=== PATIENT | female | born 1955 | race African-American/Black ===

== ENCOUNTER → 2016-07-09 | Outpatient (CLI) | payer MEDICAID | LOC: WI 15:03 | PROVIDERS: ATTEND Nurse Practitioner Primary Care | DX: Z12.31 Encounter for screening mammogram for malignant neoplasm of breast (principal) | CPT/HCPCS: 77067; G0202 ==

== ENCOUNTER → 2017-04-16 | Outpatient (CLI) | payer MEDICAID ==
[2017-04-16 11:41] LABS: HEMATOCRIT 45.5 % (36.0-47.0); HEMOGLOBIN 15.6 g/dL (12.0-15.5); MEAN CORPUSCULAR HEMOGLOBIN 29.8 pg (27.0-33.4); MEAN CORPUSCULAR HGB CONC 34.2 g/dL (32.0-36.0); MEAN CORPUSCULAR VOLUME 87 fl (80-97); PLATELET COUNT 304 10^3/uL (150-450); RED BLOOD COUNT 5.22 10^6/uL (3.72-5.28); WHITE BLOOD COUNT 11.4 10^3/uL (4.0-10.5)
[2017-04-16 12:15] LABS: ALANINE AMINOTRANSFERASE 30 U/L (9-52); ALBUMIN 4.4 g/dL (3.5-5.0); ALKALINE PHOSPHATASE 121 U/L (38-126); ANION GAP 12 (5-19); ASPARTATE AMINO TRANSFERASE 22 U/L (14-36); BILIRUBIN,DIRECT 0.3 mg/dL (0.0-0.4); BILIRUBIN,TOTAL 0.3 mg/dL (0.2-1.3); BLOOD UREA NITROGEN 12 mg/dL (7-20); CALCIUM 10.3 mg/dL (8.4-10.2); CARBON DIOXIDE 27 mmol/L (22-30); CHLORIDE 104 mmol/L (98-107); CREATINE KINASE 61 U/L (30-135); GLUCOSE 93 mg/dL (75-110); POTASSIUM 4.6 mmol/L (3.6-5.0); SODIUM 142.8 mmol/L (137-145); TOTAL PROTEIN 7.6 g/dL (6.3-8.2)
--- NOTE | 2017-04-16 14:03 | RADIOLOGY REPORT (SQ) ---
EXAM DESCRIPTION: CHEST PA/LATERAL COMPLETED DATE/TIME: 04/16/2017 11:45 am REASON FOR STUDY: CHEST PAIN COMPARISON: 10/07/2014 EXAM PARAMETERS: NUMBER OF VIEWS: two views TECHNIQUE: Digital Frontal and Lateral radiographic views of the chest acquired. RADIATION DOSE: NA LIMITATIONS: none FINDINGS: LUNGS AND PLEURA: No opacities, masses or pneumothorax. No pleural effusion. MEDIASTINUM AND HILAR STRUCTURES: No masses or contour abnormalities. HEART AND VASCULAR STRUCTURES: Heart normal size. No evidence for failure. BONES: No acute findings. HARDWARE: None in the chest. OTHER: No other significant finding. IMPRESSION: NO SIGNIFICANT RADIOGRAPHIC FINDING IN THE CHEST. TECHNICAL DOCUMENTATION: JOB ID: [id number] [employer]- All Rights Reserved
== END ==
LOC: OD 11:02
PROVIDERS: ATTEND Obstetrics & Gynecology
DX: R07.9 Chest pain, unspecified (principal); E78.5 Hyperlipidemia, unspecified
CPT/HCPCS: 36415; 71046; 80053; 82550; 84484; 85027; 85379

== ENCOUNTER 2017-06-04 21:40 | Observation (INO) | payer MEDICAID ==
[2017-06-04 21:56] LABS: ABSOLUTE BASOPHILS # (AUTO) 0.1 10^3/uL (0.0-0.2); ABSOLUTE EOSINOPHILS # (AUTO) 0.1 10^3/uL (0.0-0.6); ABSOLUTE MONOCYTES (AUTO) 0.8 10^3/uL (0.1-1.4); ABSOLUTE NEUT (AUTO) 8.1 10^3/uL (1.7-8.2); BASOPHILS % (AUTO) 0.6 % (0-2); EOSINOPHILS % (AUTO) 0.7 % (0-6); HEMATOCRIT 46.6 % (36.0-47.0); HEMOGLOBIN 16.1 g/dL (12.0-15.5); LYMPHOCYTES % (AUTO) 39.8 % (13-45); MEAN CORPUSCULAR HEMOGLOBIN 29.9 pg (27.0-33.4); MEAN CORPUSCULAR HGB CONC 34.6 g/dL (32.0-36.0); MEAN CORPUSCULAR VOLUME 87 fl (80-97); MONOCYTES % (AUTO) 5.3 % (3-13); PLATELET COUNT 320 10^3/uL (150-450); RED BLOOD COUNT 5.39 10^6/uL (3.72-5.28); SEGMENTED NEUTROPHILS % (AUTO) 53.6 % (42-78); TOTAL CELLS COUNTED % (AUTO) 100 %
[2017-06-04 22:08] LABS: ALANINE AMINOTRANSFERASE 39 U/L (9-52); ALBUMIN 4.8 g/dL (3.5-5.0); ALKALINE PHOSPHATASE 135 U/L (38-126); ANION GAP 11 (5-19); ASPARTATE AMINO TRANSFERASE 29 U/L (14-36); BILIRUBIN,DIRECT 0.1 mg/dL (0.0-0.4); BILIRUBIN,TOTAL 0.2 mg/dL (0.2-1.3); BLOOD UREA NITROGEN 11 mg/dL (7-20); CALCIUM 10.4 mg/dL (8.4-10.2); CARBON DIOXIDE 28 mmol/L (22-30); CHLORIDE 102 mmol/L (98-107); CREATINE KINASE 77 U/L (30-135); GLUCOSE 83 mg/dL (75-110); POTASSIUM 4.2 mmol/L (3.6-5.0); SODIUM 141.2 mmol/L (137-145); TOTAL PROTEIN 7.6 g/dL (6.3-8.2)
[2017-06-04 22:20] LABS: CREATINE KINASE MB 0.47 ng/mL (<4.55); TROPONIN I < 0.012 ng/mL
--- NOTE | 2017-06-04 23:00 | ER Document Report ---
ED General - General Chief Complaint: Chest Pain Stated Complaint: CHEST PAIN Time Seen by Provider: 06/04/17 22:56 Notes: Patient is a 61-year-old female presents with complaint of chest pain. She says it is a heaviness in her chest that has been ongoing at this afternoon. She says she has had some heaviness in her chest off and on for over a year but the last couple weeks has become much more frequent and today became constant and a associated sharp pain with it as well. Some nausea. No difficulty breathing. No abdominal pain. No fevers. She did have a stress test just over 5 years ago. She says she had a heart attack in 2007. She was told was a mild heart attack. She never had a heart cath and no history of stenting. No leg pain or leg swelling. No other complaints at this time. TRAVEL OUTSIDE OF THE [place] IN LAST 30 DAYS: No - Related Data Allergies/Adverse Reactions: erythromycin base [Erythromycin Base] Allergy (Verified 06/04/17 23:46) Past Medical History - Social History Smoking Status: Current Every Day Smoker Chew tobacco use (# tins/day): No Frequency of alcohol use: None Drug Abuse: None Family History: Reviewed & Not Pertinent Patient has suicidal ideation: No Patient has homicidal ideation: No - Past Medical History Cardiac Medical History: Reports: Hx Coronary Artery Disease, Hx Heart Attack - 2007 Denies: Hx Hypertension Pulmonary Medical History: Denies: Hx Asthma, Hx Bronchitis, Hx COPD, Hx Pneumonia Neurological Medical History: Denies: Hx Cerebrovascular Accident, Hx Seizures Renal/ Medical History: Denies: Hx Peritoneal Dialysis Musculoskeltal Medical History: Reports Hx Arthritis - osteo in neck Psychiatric Medical History: Reports: Hx Anxiety, Hx Depression - anxiety Past Surgical History: Reports: Hx Appendectomy, Hx Section, Hx Cholecystectomy. Denies: Hx Hysterectomy - Immunizations Hx Diphtheria, Pertussis, Tetanus Vaccination: Yes Review of Systems - Review of Systems Notes: My Normal Review Basic REVIEW OF SYSTEMS: CONSTITUTIONAL : Denies fever, chills, or sweats. Denies recent illness. EENT: Denies eye, ear, throat, or mouth pain or symptoms. Denies nasal or sinus congestion. CARDIOVASCULAR: Chest pain RESPIRATORY: Denies cough, cold, or chest congestion. Denies shortness of breath, difficulty breathing, or wheezing. GASTROINTESTINAL: Denies abdominal pain. Nausea MUSCULOSKELETAL: Denies neck or back pain or joint pain or swelling. SKIN: Denies rash or skin lesions. NEUROLOGICAL: Denies altered mental status or loss of consciousness. Denies headache. Denies weakness or paralysis or loss of use of either side. Denies problems with gait or speech. Denies sensory or motor loss. ALL OTHER SYSTEMS REVIEWED AND NEGATIVE. Physical Exam - Vital signs Vitals: Temp Pulse Resp BP Pulse Ox 98.4 F 86 20 115/67 96 06/04/17 21:55 06/04/17 21:55 06/04/17 21:55 06/04/17 21:55 06/04/17 21:55 - Notes Notes: General Appearance: Well nourished, alert, cooperative, no acute distress, no obvious discomfort. Vitals: reviewed, See vital signs table. Head: no swelling or tenderness to the head Eyes: PERRL, EOMI, Conjuctiva clear Mouth: No decreasd moisture Lungs: No wheezing, No rales, No rhonci, No accessory muscle use, good air exchange bilaterally. Heart: Normal rate, Regular rythm, No murmur, no rub Abdomen: Normal BS, soft, No rigidity, No abdominal tenderness, No guarding, no rebound, no abdominal masses, no organomegaly Extremities: strength 5/5 in all extremities, good pulses in all extremities, no swelling or tenderness in the extremities, no edema. Skin: warm, dry, appropriate color, no rash Neuro: speech clear, oriented x 3, normal affect, responds appropriately to questions. Course - Re-evaluation Re-evalutation: 06/04/17 23:59 Patient's story is concerning for coronary disease and that is a heaviness and pressure over her chest. She otherwise looks comfortable. She is in no distress at this time. Her initial troponin and EKG are negative. She does have risk factors in that she is 61 years old, family history, possible history of previous NC, and also she is a smoker. I did speak with Dr. Combs who agrees to evaluate the patient for potential admission. Dictation of this chart was performed using voice recognition software; therefore, there may be some unintended grammatical errors. - Vital Signs Vital signs: Temp Pulse Resp BP Pulse Ox 98.4 F 86 14 135/73 H 95 06/04/17 21:55 06/04/17 21:55 06/04/17 23:03 06/04/17 23:03 06/04/17 23:03 - Laboratory Result Diagrams: 06/04/17 21:25 06/04/17 21:25 Laboratory results interpreted by me: 06/04/17 06/04/17 21:25 21:25 WBC 15.0 H RBC 5.39 H Hgb 16.1 H Absolute Lymphocytes 6.0 H Calcium 10.4 H Alkaline Phosphatase 135 H - EKG Interpretation by Me Additional EKG results interpreted by me: 06/04/17 22:59 EKG is reviewed and interpreted by me. EKG shows sinus rhythm with rate of [address] segment elevation or depression. No ischemic T-wave inversions. RI interval, QRS duration, QTc intervals are within normal range. Old EKG for comparison is from October 07, 2014. Discharge - Discharge Clinical Impression: Chest pain Qualifiers: Chest pain type: unspecified Qualified Code(s): R07.9 - Chest pain, unspecified Condition: Stable Disposition: ADMITTED OBSERVATION Admitting Provider: Hospitalist Unit Admitted: Telemetry Referrals: JANELLE HARPER MD [Primary Care Provider] - Follow up as needed
[2017-06-04] MEDS ORDERED: NITROGLYCERIN 2% OINTMENT 1 GM PACKET TP ONE (23:10)
[2017-06-04] MEDS ORDERED: ASPIRIN 325 MG TABLET PO ONE (23:10)
--- NOTE | 2017-06-05 00:08 | RADIOLOGY REPORT (SQ) ---
EXAM DESCRIPTION: CHEST SINGLE VIEW CLINICAL HISTORY: 61 years Female, chest pain COMPARISON: 04/16/17 NUMBER OF VIEWS/TECHNIQUE: 1/AP LIMITATIONS: None. FINDINGS: Normal lung volume, clear parenchyma, prominent interstitium normal cardiac silhouette, and intact bony thorax. Stable. IMPRESSION: No acute cardiopulmonary findings.
[2017-06-05] MEDS ORDERED: DIAZEPAM 5 MG TABLET PO PRN (01:10)
[2017-06-05] MEDS ORDERED: DEXTROSE 50%-WATER 25 GM/50 ML DISP.SYRIN IV PRN ×2 (01:10)
[2017-06-05] MEDS ORDERED: NITROGLYCERIN 0.4 MG/TAB 25 TAB/BOTTLE SL PRN ×2 (01:10→08:44)
[2017-06-05] MEDS ORDERED: DEXTROSE 40% GEL 15 GM TUBE PO PRN ×2 (01:10)
[2017-06-05] MEDS ORDERED: GLUCAGON,HUMAN RECOMB 1 MG INJ SUBCUT PRN (01:10)
[2017-06-05] MEDS ORDERED: HYDRALAZINE HCL INJ/PF 20 MG/1 ML SDV IV PRN (01:13)
[2017-06-05 04:57] LABS: CHOLESTEROL 228.88 mg/dL (0-200); CREATINE KINASE 60 U/L (30-135); TRIGLYCERIDES 243 mg/dL (<150)
[2017-06-05] MEDS ORDERED: TRAZODONE HCL 50 MG TABLET PO PRN (05:02)
[2017-06-05 05:08] LABS: DIRECT LDL 162 mg/dL (<100)
[2017-06-05 05:09] LABS: CREATINE KINASE MB 0.43 ng/mL (<4.55)
--- NOTE | 2017-06-05 05:10 | PDOC H&P ---
History of Present Illness Admission Date/PCP: 06/05/17 00:03 JANELLE HARPER MD Patient complains of: Left-sided chest pain, palpitations and shortness of breath. History of Present Illness: TOBY ZUNIGA is a 61 year old female with a past medical history of severe anxiety and depression and GERD. Patient presents with 24 hours of left-sided chest pain which radiates to the neck associated with palpitations, shortness of breath and nausea without vomiting. She describes the pain as intermittently dull and sharp 3-4 out of 5 intensity, waxing and waning and occurring at rest. She is unable to identify alleviating or exacerbating factors. She has had many different components of chest pain in the past some associated with panic attacks. She does admit her anxiety is poorly controlled with her last panic attack only 1 week ago. She admits to tobacco dependence and excessive caffeine, denies recent change in medications and otherwise complains of poor sleep. Past Medical History Cardiac Medical History: Denies: Hypertension Pulmonary Medical History: Denies: Asthma, Bronchitis, Chronic Obstructive Pulmonary Disease (COPD), Pneumonia Neurological Medical History: Denies: Seizures Musculoskeltal Medical History: Reports: Arthritis - osteo in neck Psychiatric Medical History: Reports: Depression Hematology: Reports: Anemia Past Surgical History Past Surgical History: Reports: Appendectomy, Section, Cholecystectomy Denies: Hysterectomy Social History Information Source: Patient Smoking Status: Smoker,Current Status Unk Cigarettes Packs Per Day: 1 Frequency of Alcohol Use: Rare Hx Recreational Drug Use: No Drugs: None Hx Prescription Drug Abuse: No - Advance Directive Resuscitation Status: Full Code Family History Family History: Hypertension, Other - Alcoholism.. denies: CAD Parental Family History Reviewed: Yes Children Family History Reviewed: Yes Sibling(s) Family History Reviewed.: Yes Medication/Allergy Home Medications: Calcium/Phos/Genist/D3/Zn/K [Fosteum Plus Capsule] 1 each PO DAILY 02/12/14 Diazepam [Valium 5 mg Tablet] 5 mg PO PRN PRN 02/12/14 Paroxetine HCl [Paxil] 30 mg PO DAILY 02/12/14 Atorvastatin Calcium [Lipitor 20 mg Tablet] 20 mg PO QHS 02/13/14 Acetaminophen with Codeine [Tylenol with Codeine #3 Tablet] 1 tab PO BID #14 tab 10/08/14 Albuterol Sulfate [Albuterol Sulfate Hfa] 1 - 2 puff IH Q4 PRN #1 hfa.aer.ad 09/17 Methylprednisolone [Medrol Dosepack (4 mg/Tab) 21 Tab/Dosepak] 4 mg PO ASDIR PRN #21 tab.ds.pk 10/08/14 Allergies/Adverse Reactions: erythromycin base [Erythromycin Base] Allergy (Verified 06/04/17 23:46) Review of Systems Constitutional: PRESENT: as per HPI, fatigue, headache(s). ABSENT: fever(s), weakness Eyes: ABSENT: visual disturbances Ears: ABSENT: hearing changes Cardiovascular: PRESENT: as per HPI, chest pain. ABSENT: dyspnea on exertion, edema, orthropnea, palpitations Respiratory: ABSENT: cough, hemoptysis Gastrointestinal: ABSENT: abdominal pain, constipation, diarrhea, hematemesis, hematochezia, nausea, vomiting Genitourinary: ABSENT: dysuria, hematuria Musculoskeletal: PRESENT: back pain, other - Reproducible left shoulder pain. ABSENT: joint swelling Integumentary: ABSENT: rash, wounds Neurological: ABSENT: abnormal gait, abnormal speech, confusion, dizziness, focal weakness, syncope Psychiatric: PRESENT: anxiety, depression. ABSENT: homidical ideation, suicidal ideation Endocrine: ABSENT: cold intolerance, heat intolerance, polydipsia, polyuria Hematologic/Lymphatic: ABSENT: easy bleeding, easy bruising Physical Exam Vital Signs: Temp Pulse Resp BP Pulse Ox 98.1 F 85 16 140/75 H 96 06/05/17 03:34 06/05/17 03:34 06/05/17 03:34 06/05/17 03:34 06/05/17 03:34 Intake & Output 06/03/17 06/04/17 06/05/17 11:59 11:59 11:59 Weight 67.6 kg General appearance: PRESENT: cooperative, mild distress. ABSENT: disheveled, hard of hearing Head exam: PRESENT: atraumatic, normocephalic Eye exam: PRESENT: conjunctiva pink, EOMI, PERRLA. ABSENT: scleral icterus Ear exam: PRESENT: normal external ear exam Mouth exam: PRESENT: moist, tongue midline Neck exam: ABSENT: carotid bruit, JVD, lymphadenopathy, thyromegaly Respiratory exam: PRESENT: clear to auscultation bianca. ABSENT: rales, rhonchi, wheezes Cardiovascular exam: PRESENT: RRR. ABSENT: diastolic murmur, rubs, systolic murmur Pulses: PRESENT: normal dorsalis pedis pul Vascular exam: PRESENT: normal capillary refill GI/Abdominal exam: PRESENT: normal bowel sounds, soft. ABSENT: distended, guarding, mass, organolmegaly, rebound, tenderness Rectal exam: PRESENT: deferred Extremities exam: PRESENT: full ROM. ABSENT: calf tenderness, clubbing, pedal edema Musculoskeletal exam: PRESENT: ambulatory, deformity, dislocation, full ROM, tenderness - Spasm of the posterior neck musculature. No guarding. Full range of motion Neurological exam: PRESENT: alert, awake, oriented to person, oriented to place , oriented to time, oriented to situation, CN II-XII grossly intact. ABSENT: motor sensory deficit Psychiatric exam: PRESENT: anxious, depressed Skin exam: PRESENT: dry, intact, warm. ABSENT: cyanosis, rash Results Impressions: Chest X-Ray 06/04/17 21:45 IMPRESSION: No acute cardiopulmonary findings. Assessment & Plan - Diagnosis (1) Atypical chest pain Is this a current diagnosis for this admission?: Yes Plan: Atypical chest pain though the patient's pain is atypical there are multiple risk factors for coronary artery disease and subsequently will observe and evaluation of acute coronary syndrome versus coronary artery disease with anginal equivalents. Cardiac monitoring blood pressure Q6 hours ,TSH, lipid profile, serial cardiac enzymes and cardiac stress test (2) Tobacco abuse Is this a current diagnosis for this admission?: Yes Plan: Tobacco Dependence patient received tobacco cessation counseling and offered nicotine replacement options (3) Anxiety Is this a current diagnosis for this admission?: Yes Plan: Reassurance, home regiment, trazodone as needed follow-up outpatient mental health. - Time Time Spent: 30 to 50 Minutes
[2017-06-05 05:17] LABS: TROPONIN I < 0.012 ng/mL; VLDL CHOLESTEROL 48.6 mg/dL (10-31)
[2017-06-05] MEDS: HEPARIN SOD (PORCINE) 5,000 UNIT/ML 1 ML SYRINGE SUBCUT SCH ×3 (05:44→21:21)
--- NOTE | 2017-06-05 08:45 | EKG REPORT ---
SEVERITY:- NORMAL ECG - SINUS RHYTHM : Confirmed by: Ray Ruiz MD 05-Jun-2017 08:45:02
[2017-06-05] MEDS: ACETAMINOPHEN WITH CODEINE #3 TABLET PO PRN ×2 (09:03→15:10)
[2017-06-05] MEDS: DOCUSATE SODIUM 100 MG CAPSULE PO SCH ×2 (09:03→17:30)
[2017-06-05 09:20] LABS: ABSOLUTE BASOPHILS # (AUTO) 0.1 10^3/uL (0.0-0.2); ABSOLUTE EOSINOPHILS # (AUTO) 0.2 10^3/uL (0.0-0.6); ABSOLUTE MONOCYTES (AUTO) 0.6 10^3/uL (0.1-1.4); BASOPHILS % (AUTO) 0.9 % (0-2); EOSINOPHILS % (AUTO) 1.8 % (0-6); HEMATOCRIT 43.2 % (36.0-47.0); HEMOGLOBIN 14.7 g/dL (12.0-15.5); LYMPHOCYTES % (AUTO) 35.5 % (13-45); MEAN CORPUSCULAR HEMOGLOBIN 29.5 pg (27.0-33.4); MEAN CORPUSCULAR VOLUME 87 fl (80-97); MONOCYTES % (AUTO) 4.6 % (3-13); PLATELET COUNT 265 10^3/uL (150-450); RED BLOOD COUNT 4.98 10^6/uL (3.72-5.28); RED CELL DISTRIBUTION WIDTH 13.9 % (11.5-14.0); SEGMENTED NEUTROPHILS % (AUTO) 57.2 % (42-78); TOTAL CELLS COUNTED % (AUTO) 100 %
[2017-06-05 09:34] LABS: ANION GAP 9 (5-19); BLOOD UREA NITROGEN 16 mg/dL (7-20); CALCIUM 9.6 mg/dL (8.4-10.2); CARBON DIOXIDE 27 mmol/L (22-30); CHLORIDE 105 mmol/L (98-107); GLUCOSE 96 mg/dL (75-110); POTASSIUM 4.1 mmol/L (3.6-5.0); SODIUM 140.5 mmol/L (137-145)
[2017-06-05 09:46] LABS: CREATINE KINASE MB 0.44 ng/mL (<4.55)
[2017-06-05 09:49] LABS: TROPONIN I < 0.012 ng/mL
[2017-06-05] MEDS ORDERED: AMINOPHYLLINE INJ/PF 250 MG/10 ML SDV IV ONE (11:51)
[2017-06-05] MEDS ORDERED: REGADENOSON INJ 0.4 MG/5 ML DISP.SYRIN IV ONE (11:51)
[2017-06-05 16:46] LABS: CREATINE KINASE MB 0.55 ng/mL (<4.55)
[2017-06-05 16:52] LABS: TROPONIN I < 0.012 ng/mL
[2017-06-05] MEDS ORDERED: PROMETHAZINE HCL 25 MG TABLET PO PRN (17:52)
--- NOTE | 2017-06-05 18:30 | PDOC PROGRESS REPORT ---
Subjective Progress Note for:: 06/05/17 Subjective:: Complaints of nausea. Admitted overnight. Could not do stress test today because at breakfast. No chest pain or palpitations at this time. Reason For Visit: CP,ANXIETY Physical Exam Vital Signs: Temp Pulse Resp BP Pulse Ox 97.8 F 93 20 102/57 L 97 06/05/17 11:58 06/05/17 14:00 06/05/17 11:58 06/05/17 11:58 06/05/17 11:58 Intake & Output 06/04/17 06/05/17 06/06/17 06:59 06:59 06:59 Intake Total 0 118 Balance 0 118 Weight 67.6 kg GEN: NAD, well-developed, well-nourished CV: RRR, NL S1S2 LUNGS: CTA bilaterally ABDOMEN Soft, NT, +BS EXTERMITIES: No e/c/c NEURO: Alert, oriented Results Laboratory Results: 06/05/17 08:41 06/05/17 08:41 06/05/17 06/05/17 06/05/17 03:39 08:41 08:41 WBC 14.0 H RBC 4.98 Hgb 14.7 Hct 43.2 MCV 87 MCH 29.5 MCHC 34.0 RDW 13.9 Plt Count 265 Seg Neutrophils % 57.2 Lymphocytes % 35.5 Monocytes % 4.6 Eosinophils % 1.8 Basophils % 0.9 Absolute Neutrophils 8.0 Absolute Lymphocytes 5.0 H Absolute Monocytes 0.6 Absolute Eosinophils 0.2 Absolute Basophils 0.1 Sodium 140.5 Potassium 4.1 Chloride 105 Carbon Dioxide 27 Anion Gap 9 BUN 16 Creatinine 0.85 Est GFR ( Amer) > 60 Est GFR (Non-Af Amer) > 60 Glucose 96 Calcium 9.6 Triglycerides 243 H Cholesterol 228.88 H LDL Cholesterol Direct 162 H VLDL Cholesterol 48.6 H HDL Cholesterol 41 06/05/17 06/05/17 06/05/17 03:39 03:39 08:41 Creatine Kinase 60 CK-MB (CK-2) 0.43 0.44 Troponin I < 0.012 < 0.012 06/05/17 15:45 Creatine Kinase CK-MB (CK-2) 0.55 Troponin I < 0.012 Impressions: Chest X-Ray 06/04/17 21:45 IMPRESSION: No acute cardiopulmonary findings. Assessment & Plan - Diagnosis (1) Nausea Is this a current diagnosis for this admission?: Yes (2) Atypical chest pain Is this a current diagnosis for this admission?: Yes (3) Tobacco abuse Is this a current diagnosis for this admission?: Yes - Plan Summary Plan Summary: Patient states milligrams tabs. Will treat with Phenergan 25 mg every 6 hours as needed for nausea. N.p.o. after midnight. Stress Cardiolite in a.m. Continue management otherwise.
[2017-06-05] MEDS ORDERED: ATORVASTATIN CALCIUM 80 MG TABLET PO SCH (22:00)
[2017-06-06 04:56] LABS: ABSOLUTE BASOPHILS # (AUTO) 0.1 10^3/uL (0.0-0.2); ABSOLUTE EOSINOPHILS # (AUTO) 0.3 10^3/uL (0.0-0.6); ABSOLUTE MONOCYTES (AUTO) 0.6 10^3/uL (0.1-1.4); ABSOLUTE NEUT (AUTO) 4.7 10^3/uL (1.7-8.2); BASOPHILS % (AUTO) 0.9 % (0-2); EOSINOPHILS % (AUTO) 2.8 % (0-6); HEMATOCRIT 44.6 % (36.0-47.0); HEMOGLOBIN 15.4 g/dL (12.0-15.5); LYMPHOCYTES % (AUTO) 46.7 % (13-45); MEAN CORPUSCULAR HEMOGLOBIN 29.9 pg (27.0-33.4); MEAN CORPUSCULAR HGB CONC 34.5 g/dL (32.0-36.0); MEAN CORPUSCULAR VOLUME 87 fl (80-97); MONOCYTES % (AUTO) 5.9 % (3-13); PLATELET COUNT 269 10^3/uL (150-450); RED BLOOD COUNT 5.15 10^6/uL (3.72-5.28); SEGMENTED NEUTROPHILS % (AUTO) 43.7 % (42-78); TOTAL CELLS COUNTED % (AUTO) 100 %; WHITE BLOOD COUNT 10.7 10^3/uL (4.0-10.5)
[2017-06-06 05:21] LABS: ANION GAP 12 (5-19); BLOOD UREA NITROGEN 13 mg/dL (7-20); CALCIUM 9.7 mg/dL (8.4-10.2); CARBON DIOXIDE 24 mmol/L (22-30); CHLORIDE 107 mmol/L (98-107); CHOLESTEROL 253.77 mg/dL (0-200); CREATINE KINASE 56 U/L (30-135); GLUCOSE 98 mg/dL (75-110); POTASSIUM 4.5 mmol/L (3.6-5.0); SODIUM 142.6 mmol/L (137-145); TRIGLYCERIDES 154 mg/dL (<150)
[2017-06-06] MEDS: HEPARIN SOD (PORCINE) 5,000 UNIT/ML 1 ML SYRINGE SUBCUT SCH ×2 (05:22→15:01)
[2017-06-06 05:31] LABS: DIRECT LDL 184 mg/dL (<100)
[2017-06-06 05:35] LABS: VLDL CHOLESTEROL 30.8 mg/dL (10-31)
--- NOTE | 2017-06-06 11:44 | DRAGON STRESS TEST REPORT ---
INTRAVENOUS LEXISCAN CARDIOLITE STRESS TEST USING SINGLE PHOTON EMMISION COMPUTERIZED TOMOGRAPHIC. DATE OF PROCEDURE: June 06, 2017, INDICATION : Chest pain CARDIAC RISK FACTORS: Hypertension, diabetes, dyslipidemia, tobacco abuse RESTING EKG: Sinus rhythm with minor nonspecific ST-T wave changes STRESS EKG: No significant changes noted with LexiScan bolus REASON FOR TERMINATION: Protocol. PROCEDURE REPORT: Baseline heart rate 76 beats per minute with blood pressure of 129/68. Patient had no significant complaints. Heart rate at 2 minutes post bolus 108 with a blood pressure of 133/73. 3 minutes post bolus heart rate 99 with blood pressure of 126/70. No significant EKG changes were noted. Patient had no significant complaints during the procedure or postprocedure. Patient injected with Aminophyllin 75 mg at 3 minutes or later after Lexiscan bolus. CONCLUSIONS: Normal EKG and hemodynamic response to IV LexiScan. NUCLEAR DATA: At rest the patient was given 10.75 millicuries of technetium 99 sestamibi injected intravenously. As per protocol rest gated SPECT images were obtained. On day of stress test, the patient was given intravenous LexiScan at a dose of 0.4 mg in 5 mL intravenously, followed by flush with normal saline. Subsequently the stress dose of 30.3 millicuries of technetium 99 sestamibi was injected intravenously. As per protocol stress gated images were obtained. NUCLEAR INTERPRETATION: Both raw and processed data were used for interpretation. Visual, qualitative, computer-generated quantitative data was used. There was good myocardial uptake of technetium compound. Motion artifact and soft tissue attenuations were noted. Increased visceral uptake was noted. No definitive areas of transient perfusion defect noted, No definitive areas of fixed perfusion defect or scars noted. EKG gated imaging showed LV EF at 62 %, rest and stress gated EF similar visually. T. I D. ratio was 0.98. Lung heart ratio noted to be within normal limits 0.36. No significant extracardiac and abnormal radiotracer activities were noted. RV free wall uptake was noted to be WNL. IMPRESSION: Also refer to comments under nuclear interpretation. Also test results needs to be interpreted in the context of pretest probability. 1. No definitive areas of transient perfusion defect noted. 2. There is no definitive scintigraphic evidence of myocardial infarction/scar. 3. EKG gated imaging shows left ventricular ejection fraction of approx. 62 %. 4. Clinical correlation requested as occasionally single vessel disease or balanced ischemia could be missed. In approximately 10% of the cases Lexiscan may not cause adequate vasodilatory stress. RECOMMENDATIONS: Aggressive risk factor modification and medical management. Further evaluation may be needed if continued symptoms or other high risk indicators are noted on clinical evaluation. Close cardiology follow-up is also recommended. Clinical correlation with echocardiogram derived ejection fraction. Inability to exercise by itself can lead to increased cardiovascular event risks. Consider cardiology consultation and or follow-up if clinically indicated. I am available for cardiology evaluation and consultation if requested by the whizzer hand, unless patient already has a clerk general office. YAW
[2017-06-06] MEDS: DOCUSATE SODIUM 100 MG CAPSULE PO SCH (11:54)
[2017-06-06 15:42] VITALS: BP 140/75
--- NOTE | 2017-06-06 18:23 | PDOC DISCHARGE SUMMARY ---
General - Admit/Disc Date/PCP Admission Date/Primary Care Provider: 06/05/17 00:03 JANELLE HARPER MD Discharge Date: 06/06/17 - Discharge Diagnosis (1) Atypical chest pain Is this a current diagnosis for this admission?: Yes (2) Nausea Is this a current diagnosis for this admission?: Yes (3) Tobacco abuse Is this a current diagnosis for this admission?: Yes - Additional Information Resuscitation Status: Full Code Discharge Diet: Cardiac Discharge Activity: Activity As Tolerated, Balance Activity w/Rest Home Medications: Diazepam [Valium 5 mg Tablet] 5 mg PO DAILYP PRN 06/05/17 Paroxetine HCl [Paxil] 30 mg PO DAILY 06/05/17 History of Present Illness History of Present Illness: TOBY ZUNIGA is a 61 year old female history of severe anxiety, admitted with complaints of chest pain, palpitations, and feeling of this. She admitted to oh she has been stressed recently. Evaluation by presentation was accounted for unremarkable EKG. Patient was admitted to 24 hours observation to rule out acute chest syndrome. Hospital Course Hospital Course: Patient was admitted to hospitalist service. She ruled out for MO with serial troponins 3. She has stress Cardiolite done that was negative for reversible ischemia. Patient was found to have elevated cholesterol. She states her cholesterol has been high in the past and her PCP is watching it. She wishes to follow-up with her PCP for further recommendations and treatment as needed. She is counseled on a heart healthy diet. She is being discharged home in stable condition. She is to follow with her primary care physician within 1 week. Discharge medications as above, including for anxiety. She reports no reflux symptoms at this time, but will take [id number] medications as needed. Physical Exam Vital Signs: Temp Pulse Resp BP Pulse Ox 98.3 F 103 H 12 140/75 H 100 06/06/17 15:40 06/06/17 15:40 06/06/17 15:40 06/06/17 15:40 06/06/17 15:40 Intake & Output 06/05/17 06/06/17 06/07/17 06:59 06:59 06:59 Intake Total 0 1425 Balance 0 1425 Weight 67.6 kg 74.6 kg GEN: NAD, well-developed, well-nourished CV: RRR, NL S1S2 LUNGS: CTA bilaterally ABDOMEN Soft, NT, +BS EXTERMITIES: No e/c/c NEURO: Alert, oriented x 3, nonfocal Results Laboratory Results: 06/06/17 04:25 06/06/17 04:25 06/06/17 06/06/17 04:25 04:25 WBC 10.7 H RBC 5.15 Hgb 15.4 Hct 44.6 MCV 87 MCH 29.9 MCHC 34.5 RDW 14.0 Plt Count 269 Seg Neutrophils % 43.7 Lymphocytes % 46.7 H Monocytes % 5.9 Eosinophils % 2.8 Basophils % 0.9 Absolute Neutrophils 4.7 Absolute Lymphocytes 5.0 H Absolute Monocytes 0.6 Absolute Eosinophils 0.3 Absolute Basophils 0.1 Sodium 142.6 Potassium 4.5 Chloride 107 Carbon Dioxide 24 Anion Gap 12 BUN 13 Creatinine 0.84 Est GFR ( Amer) > 60 Est GFR (Non-Af Amer) > 60 Glucose 98 Calcium 9.7 Triglycerides 154 H Cholesterol 253.77 H LDL Cholesterol Direct 184 H VLDL Cholesterol 30.8 HDL Cholesterol 51 06/05/17 06/05/17 06/05/17 03:39 03:39 08:41 Creatine Kinase 60 CK-MB (CK-2) 0.43 0.44 Troponin I < 0.012 < 0.012 06/05/17 06/06/17 15:45 04:25 Creatine Kinase 56 CK-MB (CK-2) 0.55 Troponin I < 0.012 Impressions: Chest X-Ray 06/04/17 21:45 IMPRESSION: No acute cardiopulmonary findings. Qualifiers - * PATEINT BEING DISCHARGED WITH ANY OF THE FOLLOWING DIAGNOSIS?: No Plan Time Spent: Greater than 30 Minutes
== END 2017-06-06 16:03 | disposition home or self-care (01) ==
LOC: ER 21:40 → EH 06-05 00:03 → 3W 06-05 03:26
PROVIDERS: ADMIT Internal Medicine; ATTEND Internal Medicine
DX: R07.89 Other chest pain (principal); R11.0 Nausea; R00.2 Palpitations; F41.9 Anxiety disorder, unspecified; E78.00 Pure hypercholesterolemia, unspecified; R06.02 Shortness of breath; F17.210 Nicotine dependence, cigarettes, uncomplicated; R53.83 Other fatigue; R51 Headache; M54.9 Dorsalgia, unspecified; M25.512 Pain in left shoulder; F32.9 Major depressive disorder, single episode, unspecified; I25.2 Old myocardial infarction; Z90.49 Acquired absence of other specified parts of digestive tract; Z82.49 Family history of ischemic heart disease and other diseases of the circulatory system
CPT/HCPCS: 93005; 99285; 36415 ×2; 82553; 82550 ×2; 85025 ×2; 80048 ×2; 80053; 84484; 80061 ×2; 93017; 71045; 78452; 93010; G0378 ×3; A9500; J2785; J3490 ×8; J1644 ×2; J0280; Q9969

== ENCOUNTER 2018-05-14 18:22 | Emergency (ER) | payer MEDICAID ==
[2018-05-14] MEDS ORDERED: HYDROCODONE/ACETAMINOPHEN 5-325 MG TABLET PO ONE (19:52)
--- NOTE | 2018-05-14 19:55 | ER Document Report ---
ED General - General Chief Complaint: Chest Pain Stated Complaint: BREAST/SHOULDER/HEAD PAIN, COUGH, FEVER Time Seen by Provider: 05/14/18 19:43 Primary Care Provider: JANELLE HARPER MD [Primary Care Provider] - Follow up as needed Notes: Patient is a 62-year-old female that comes to the emergency department for chief complaint of 6 symptoms for 1 week including cough which has become productive, fever, chills, body aches, and she states she has developed a pain on her right side pain is worse with cough. Pain is approximately at the lower ribs and wraps around to her back. She smokes, denies history of asthma, COPD, is not on home oxygen or inhalers. Other medical history includes cholecystectomy, , appendectomy. She states that she was told from an old EKG that she "might have had a heart attack", has had a negative stress test 2 years ago, no history of cardiac cath or stents. TRAVEL OUTSIDE OF THE [place] IN LAST 30 DAYS: No - Related Data Allergies/Adverse Reactions: erythromycin base [Erythromycin Base] Allergy (Verified 05/14/18 18:24) Past Medical History - General Information source: Patient - Social History Smoking Status: Current Every Day Smoker Smoking Education Provided: Yes - <3 min Frequency of alcohol use: None Drug Abuse: None Lives with: Family Family History: Hypertension, Other - Alcoholism.. denies: CAD - Past Medical History Cardiac Medical History: Reports: Hx Heart Attack - 2007 Denies: Hx Hypertension Pulmonary Medical History: Denies: Hx Asthma, Hx Bronchitis, Hx COPD, Hx Pneumonia Neurological Medical History: Denies: Hx Cerebrovascular Accident, Hx Seizures Renal/ Medical History: Denies: Hx Peritoneal Dialysis Musculoskeletal Medical History: Reports Hx Arthritis - osteo in neck Psychiatric Medical History: Reports: Hx Anxiety, Hx Depression Past Surgical History: Reports: Hx Appendectomy, Hx Section, Hx Cholecystectomy. Denies: Hx Hysterectomy - Immunizations Hx Diphtheria, Pertussis, Tetanus Vaccination: Yes Review of Systems - Review of Systems Constitutional: See HPI EENT: No symptoms reported Cardiovascular: No symptoms reported Respiratory: See HPI Gastrointestinal: No symptoms reported Genitourinary: No symptoms reported Female Genitourinary: No symptoms reported Musculoskeletal: No symptoms reported Skin: No symptoms reported Hematologic/Lymphatic: No symptoms reported Neurological/Psychological: No symptoms reported Physical Exam - Vital signs Vitals: Temp Pulse Resp BP Pulse Ox 99.1 F 101 H 17 112/76 97 05/14/18 18:43 05/14/18 18:43 05/14/18 18:43 05/14/18 18:43 05/14/18 18:43 - Notes Notes: GENERAL: Alert, interacts well. No acute distress. HEAD: Normocephalic, atraumatic. EYES: Pupils equal, round, and reactive to light. Extraocular movements intact. ENT: Oral mucosa moist, tongue midline. Oropharynx unremarkable. Airway patent. Nares patent, no nasal septal hematoma, TM's intact. NECK: Full range of motion. Supple. Trachea midline. LUNGS: A few coarse breath sounds, no wheezing, rales, or rhonchi. Episodes of congested cough noted. No respiratory distress. HEART: Borderline tachycardia, normal rhythm. No murmur ABDOMEN: Soft, non-tender. Non-distended. Bowel sounds present in all 4 quadrants. GENITOURINARY: Deferred EXTREMITIES: Moves all 4 extremities spontaneously. No edema, normal radial and dorsalis pedis pulses bilaterally. No cyanosis. BACK: no cervical, thoracic, lumbar midline tenderness. No saddle anesthesia, normal distal neurovascular exam. NEUROLOGICAL: Alert and oriented x3. Normal speech. [cranial nerves II through XII grossly intact]. PSYCH: Normal affect, normal mood. SKIN: Warm, dry, normal turgor. No rashes or lesions noted. Course - Re-evaluation Re-evalutation: Patient was coughing episodes of congestion sounding cough, a few coarse breath sounds but no wheezing, no rales, rhonchi. No hypoxia. Initially borderline tachycardia but this resolved. EKG sinus rhythm without T wave inversions or ST segment changes in consecutive leads. Chest x-ray is actually unremarkable. Laboratory workup unremarkable. Troponin is negative. Influenza is negative. Patient reporting fevers at home, family confirming this, patient with worsening cough. She does smoke but there is no evidence of wheezing or upper respiratory involvement at this time. I suspect there is an underlying pneumonia. Cough is worsening. Discussed with patient. Patient will be treated with dexamethasone because of the right sided chest pain especially with cough and with deep breath (pleuritic component), treated with doxycycline for suspected pneumonia, patient will follow-up close with primary care and return if she worsens in any way. Discussed smoking cessation. Patient states satisfaction and agreement with plan. Stable at time of discharge. - Vital Signs Vital signs: Temp Pulse Resp BP Pulse Ox 98.6 F 101 H 13 125/78 94 05/14/18 23:16 05/14/18 18:43 05/14/18 23:04 05/14/18 23:04 05/14/18 23:03 - Laboratory Result Diagrams: 05/14/18 21:02 05/14/18 21:02 Laboratory results interpreted by me: 05/14/18 05/14/18 21:02 21:02 RBC 5.80 H Hgb 17.3 H Hct 50.2 H Alkaline Phosphatase 156 H Total Protein 8.6 H Discharge - Discharge Clinical Impression: Cough, Right-sided chest pain Fever Qualifiers: Fever type: unspecified Qualified Code(s): R50.9 - Fever, unspecified Condition: Stable Disposition: HOME, SELF-CARE Additional Instructions: Your workup is reassuring, we are treating you for suspected developing underlying pneumonia with doxycycline antibiotic. We also are treating you for suspected pleurisy with dexamethasone. Take the pain/cough medication provided for you tonight only at night to help you sleep if needed. Stay hydrated and rest. Symptoms should resolve with time. Follow-up close with your primary care provider. Stop smoking. Return if you worsen including difficulty breathing, increased pain, passing out, or any other concerning or worsening symptoms. Prescriptions: Doxycycline Hyclate 100 mg PO BID #14 capsule Forms: Smoking Cessation Education Referrals: JANELLE HARPER MD [Primary Care Provider] - Follow up as needed
--- NOTE | 2018-05-14 20:04 | EKG REPORT ---
SEVERITY:- BORDERLINE ECG - SINUS TACHYCARDIA BORDERLINE T WAVE ABNORMALITIES : Confirmed by: Brad Aguirre 14-May-2018 20:04:00
--- NOTE | 2018-05-14 20:35 | RADIOLOGY REPORT (SQ) ---
EXAM DESCRIPTION: XR CHEST 2 VIEWS COMPLETED DATE/TME: 05/14/2018 19:51 CLINICAL HISTORY: 62 years, Female, productive cough and fever x1 week, R sided pain COMPARISON: 3-18 chest NUMBER OF VIEWS: 2 TECHNIQUE: Frontal and lateral views of the chest LIMITATIONS: None. FINDINGS: Heart size is normal. Minor biapical pleural thickening. Osteopenia. Lungs are hyperinflated but clear. No pneumothorax. IMPRESSION: Underlying hyperinflation. No acute cardiopulmonary process copyright 2010 [employer]- All Rights Reserved
[2018-05-14 21:18] LABS: ABSOLUTE BASOPHILS # (AUTO) 0.1 10^3/uL (0.0-0.2); ABSOLUTE LYMPHOCYTES (AUTO) 3.4 10^3/uL (0.5-4.7); ABSOLUTE MONOCYTES (AUTO) 0.9 10^3/uL (0.1-1.4); BASOPHILS % (AUTO) 0.7 % (0-2); EOSINOPHILS % (AUTO) 0.3 % (0-6); HEMATOCRIT 50.2 % (36.0-47.0); HEMOGLOBIN 17.3 g/dL (12.0-15.5); LYMPHOCYTES % (AUTO) 36.1 % (13-45); MEAN CORPUSCULAR HEMOGLOBIN 29.8 pg (27.0-33.4); MEAN CORPUSCULAR HGB CONC 34.5 g/dL (32.0-36.0); MEAN CORPUSCULAR VOLUME 87 fl (80-97); MONOCYTES % (AUTO) 9.6 % (3-13); PLATELET COUNT 272 10^3/uL (150-450); SEGMENTED NEUTROPHILS % (AUTO) 53.3 % (42-78); TOTAL CELLS COUNTED % (AUTO) 100 %; WHITE BLOOD COUNT 9.3 10^3/uL (4.0-10.5)
[2018-05-14 21:43] LABS: A TYPE INFLUENZA AG NEGATIVE (NEGATIVE); B INFLUENZA AG NEGATIVE (NEGATIVE)
[2018-05-14 22:04] LABS: ALANINE AMINOTRANSFERASE 30 U/L (9-52); ALBUMIN 4.8 g/dL (3.5-5.0); ALKALINE PHOSPHATASE 156 U/L (38-126); ANION GAP 10 (5-19); ASPARTATE AMINO TRANSFERASE 32 U/L (14-36); BILIRUBIN,DIRECT 0.1 mg/dL (0.0-0.4); BILIRUBIN,TOTAL 0.5 mg/dL (0.2-1.3); BLOOD UREA NITROGEN 8 mg/dL (7-20); CALCIUM 9.6 mg/dL (8.4-10.2); CARBON DIOXIDE 29 mmol/L (22-30); CHLORIDE 102 mmol/L (98-107); GLUCOSE 104 mg/dL (75-110); POTASSIUM 3.9 mmol/L (3.6-5.0); SODIUM 140.5 mmol/L (137-145); TOTAL PROTEIN 8.6 g/dL (6.3-8.2)
[2018-05-14] MEDS ORDERED: HYDROCODONE/ACETAMINOPHEN 5-325 MG (6 TAB/ER DISP) PO PRN (22:40)
[2018-05-14] MEDS ORDERED: DEXAMETHASONE SOD PHOS INJ 10 MG/1 ML VIAL IV ONE (22:40)
[2018-05-14 23:11] VITALS: BP 125/78
== END 2018-05-14 23:33 | disposition home or self-care (01) ==
LOC: ER 18:22
DX: R05 Cough (principal); R07.9 Chest pain, unspecified; R51 Headache; R50.9 Fever, unspecified; M79.10 Myalgia, unspecified site; F17.200 Nicotine dependence, unspecified, uncomplicated; Z88.3 Allergy status to other anti-infective agents; I25.2 Old myocardial infarction
CPT/HCPCS: 93005; 99284; 96374; 36415; 87040; 85025; 80053; 84484; 87804; 71046; 93010; J1100

== ENCOUNTER → 2018-07-26 | Outpatient (CLI) | payer MEDICAID ==
--- NOTE | 2018-07-26 13:57 | WOMENS IMAGING REPORT ---
EXAM DESCRIPTION: 3D SCREENING MAMMO BILAT COMPLETED DATE/TIME: 07/26/2018 1:14 pm REASON FOR STUDY: Z12.31 ENCOUNTER FOR SCREENING MAMMOGRAM FOR MALIGNANT NEOPLASM OF BREAST Z12.31 ENCNTR SCREEN MAMMOGRAM FOR MALIGNANT NEOPLASM OF MIGUEL ANGEL COMPARISON: 07/09/2016 and 05/27/2010. TECHNIQUE: Standard craniocaudal and mediolateral oblique views of each breast recorded using digita l acquisition and breast tomosynthesis. LIMITATIONS: None. FINDINGS: RIGHT BREAST MASSES: Irregular mass in the upper-outer breast, located 5 to 6 cm from the nipple, best visualized on the MLO tomosynthesis image 26 and CC tomosynthesis image 35. CALCIFICATIONS: No new or suspicious calcifications. ARCHITECTURAL DISTORTION: None. DEVELOPING DENSITY: None. ASYMMETRY: None noted. OTHER: No other significant findings. LEFT BREAST MASSES: Slightly lobulated small mass in the central breast, located 4 to 6 cm from the nipple, best visualized on MLO tomosynthesis image 38 and CC tomosynthesis image 35. CALCIFICATIONS: No new or suspicious calcifications. ARCHITECTURAL DISTORTION: None. DEVELOPING DENSITY: None. ASYMMETRY: None noted. OTHER: No other significant findings. Read with the assistance of CAD. .[facility] - R2 Cenova Version 1.3 .[facility] Imaging - R2 Cenova Version 2.1 .[facility] Imaging - R2 Cenova Version 2.4 .[facility] - R2 Cenova Version 2.4 .[facility] - R2 Optical [employer]ator Version 9.2 IMPRESSION: Small masses in both breasts as described. BREAST DENSITY: b. There are scattered areas of fibroglandular density. BIRAD: 0 Incomplete: Needs Additional Imaging Evaluation and/or prior Mammograms for Comparison. RECOMMENDATION: RECOMMENDED FOLLOW-UP: Recommend additional evaluation with ultrasound of both breas ts. The patient will be contacted for additional imaging. COMMENT: The patient has been notified of the results by letter per SA requirements. Additional no tification policies are in place for contacting patient with suspicious or incomplete findings. Quality ID #[id number]: The [employer] recommends an annual screening mammogram for women aged 40 years or over. This facility utilizes a reminder system to ensure that all patients receive reminder letters, and/or direct phone calls for appointments. This includes reminders for routine scr eening mammograms, diagnostic mammograms, or other Breast Imaging Interventions when appropriate. Th is patient will be placed in the appropriate reminder system. The [employer] (ACR) has developed recommendations for screening MRI of the breast s in certain patient populations, to be used in conjunction with mammography. Breast MRI surveillanc e may be appropriate for women with more than 20% lifetime risk of developing breast cancer as deter mined by genetic testing, significant family history of the disease, or history of mantle radiation f or Hodgkins Disease. ACR Practice Guidelines 2008. DBT Technology DBT is a type of tomographic mammography. With conventional mammography, overlapping breast tissue ma y make lesions difficult to detect, even with good compression. DBT uses an x-ray tube that rotates a round the breast, taking images at different angles. These images are then combined to create thin sl ices of the breast that the radiologist can view as a 3D reconstruction. The [employer] unit can perform full-field digital mammograms (2D imaging); or DBT (3D imaging); or both, in a combination mode that quickly performs both the mammogram and the tomosynthesis scan while the breast is still compressed. PQRS 6045F: Fluoroscopic imaging is not utilized for breast tomosynthesis. TECHNICAL DOCUMENTATION: FINDING NUMBER: (1) ASSESSMENT: (1) JOB ID: [id number] [employer]- All Rights Reserved Reading location - IP/workstation name: [email or web address]
== END ==
LOC: WI 12:53
PROVIDERS: ATTEND Nurse Practitioner Primary Care
DX: Z12.31 Encounter for screening mammogram for malignant neoplasm of breast (principal)
CPT/HCPCS: 77063; 77067

== ENCOUNTER → 2018-08-12 | Outpatient (CLI) | payer MEDICAID ==
--- NOTE | 2018-08-12 14:24 | WOMENS IMAGING REPORT ---
EXAM DESCRIPTION: U/S BREAST UNILAT LIMITED COMPLETED DATE/TIME: 08/12/2018 1:57 pm REASON FOR STUDY: R92.2 INCONCLUSIVE MAMMOGRAM RIGHT R92.2 INCONCLUSIVE MAMMOGRAM COMPARISON: None. TECHNIQUE: Real-time and static grayscale imaging performed of the right and left breast targeted to the area of mammographic concern. Selected color Doppler images recorded. LIMITATIONS: None. FINDINGS: MASS: No mass identified. Normal glandular tissue. OTHER: Tiny subcentimeter septated cyst right breast 11 12 o'clock position, benign. Tiny subcentimeter septated cyst left breast 12 to 1 o'clock position, benign. IMPRESSION: No suspicious findings detected by ultrasound. BIRAD: 2 Benign findings. RECOMMENDATION: RECOMMENDED FOLLOW-UP: Please continue yearly bilateral screening mammography/ tomos ynthesis in July 2019 COMMENT: The [employer] (ACR) has developed recommendations for screening MRI of the breasts in certain patient populations, to be used in conjunction with mammography. Breast MRI s urveillance may be appropriate for women with more than 20% lifetime risk of developing breast cancer as determined by genetic testing, significant family history of the disease, or history of mantle r adiation for Hodgkins Disease. ACR Practice Guidelines 2008. TECHNICAL DOCUMENTATION: JOB ID: [id number] [employer]- All Rights Reserved Reading location - IP/workstation name: [email or web address]
--- NOTE | 2018-08-16 10:56 | WOMENS IMAGING REPORT ---
EXAM DESCRIPTION: U/S BREAST UNILAT LIMITED COMPLETE DATE/TIME: 08/15/2018 4:10 pm REASON FOR STUDY: R92.2 LEFT R92.2 INCONCLUSIVE MAMMOGRAM FINDINGS: Please see combined report for performance of procedure and radiologic supervision and int erpretation. IMPRESSION: Please see combined report for performance of procedure and radiologic supervision and i nterpretation. Reading location - IP/workstation name: [email or web address]
== END ==
LOC: WI 13:01
PROVIDERS: ATTEND Nurse Practitioner Primary Care
DX: R92.2 Inconclusive mammogram (principal)
CPT/HCPCS: 76642